=== PATIENT | female | born 1965 | race Caucasian/White ===

== ENCOUNTER 2018-07-28 17:15 | Inpatient (IN) ==
[~2018-07-28 17:15] MED LIST: Iohexol 350 MG/ML 50 ML Vial (for Cath Lab) IVCONTRAST ONE
[2018-07-28] MEDS ORDERED: Butalbital/APAP/Caff 50/325/40 MG Tablet PO ONE (17:56)
--- NOTE | 2018-07-28 18:10 | ED ---
HPI General Chief Complaint: Chest Pain Stated Complaint: chest pain Time Seen by Provider: 07/28/18 17:41 Source: patient Mode of arrival: ambulatory Limitations: no limitations History of Present Illness HPI narrative: 53 YO F with PMH of DM, HTN, CHF, hypothyroid, chronic headaches presents to the ED for evaluation of an episode of chest pain ~10am today. The patient states that the pain started in the bilateral jaw and radiated down the neck and into the chest. Pain was sharp, aching, lasted ~20 minutes before resolving spontaneously. She endorses associated nausea and SOB. She denies palpitations or diaphoresis. The patient chewed 2 Excedrin en route. She states that the pain is resolved on presentation. She complains of headache over the left eye with associated photophobia. Pain is rated 6/10, throbbing, similar to previous headaches. She endorses associated nausea. She states that she had a similar episode of chest pain earlier in the week. She went to [facility] 4 days ago and had an elevated Troponin of 0.07 followed by a reflex troponin of 0.12. She states "they wanted to take me to the dental laboratory supervisor but gave me the option of seeing my own doctor for the procedure." The patient left AMA. She endorses distant history of stress test. She endorses compliance with her daily medications. She is followed by Dr. Grant. Related Data Home Medications Medication Instructions Recorded Confirmed amlodipine 10 mg PO DAILY 04/02/18 07/28/18 empagliflozin [Jardiance] 25 mg PO DAILY 04/02/18 07/28/18 potassium chloride 10 meq PO DAILY 04/02/18 07/28/18 triamterene-hydrochlorothiazid 1 tab PO DAILY 04/02/18 07/28/18 amlodipine 10 mg PO DAILY 07/28/18 07/28/18 insulin glargine [Lantus Solostar 07/28/18 U-100 Insulin] insulin lispro [Humalog KwikPen 07/28/18 07/28/18 Insulin] levothyroxine [Tirosint] 50 mcg PO DAILY 07/28/18 07/28/18 Allergies Allergy/AdvReac Type Severity Reaction Status Date / Time amoxicillin Allergy Severe Nausea Verified 07/28/18 17:23 cephalexin Allergy Severe Migraine Verified 07/28/18 17:23 clindamycin Allergy Severe Nausea Verified 07/28/18 17:23 furosemide [From Lasix] Allergy Edema Verified 07/28/18 17:23 hydromorphone [From Dilaudid] Allergy Hallucinati Verified 07/28/18 17:23 ons Review of Systems ROS: all other systems reviewed are negative [facility] Medical History Medical History CHF (congestive heart failure) (Acute) delivery delivered (Acute) Diabetes (Acute) HTN (hypertension) (Acute) Migraine (Acute) Surgical History Surgical History H/O tubal ligation (Acute) History of cholecystectomy (Acute) Social History Social History Substance History: No History of Abuse Second Hand Smoke Exposure: No Smoking Status: Former smoker How Often Do You Have a Drink Containing Alcohol: Unable to Obtain Recent Travel in [facility] within the Last 8 Weeks: No Recent Out of Country Travel within the Last 8 Weeks: No Immunization History Tetanus Immunization: Unsure Exam Narrative Exam Narrative: GENERAL: Well-nourished, well-developed, obese white female no acute distress. SKIN: Focused skin assessment warm/dry. HEAD: Atraumatic. Normocephalic. EYES: Pupils equal and round. No scleral icterus. No injection or drainage. ENT: No nasal bleeding or discharge. Mucous membranes pink and moist. NECK: Trachea midline. No JVD. CARDIOVASCULAR: Regular rate and rhythm. No murmur appreciated. CHEST: Nontender throughout without deformity or crepitus. No retractions. RESPIRATORY: No accessory muscle use. Clear to auscultation. Breath sounds equal bilaterally. GASTROINTESTINAL: Abdomen soft, non-tender, nondistended. Hepatic and splenic margins not palpable. MUSCULOSKELETAL: No obvious deformities. No clubbing. No cyanosis. No edema. NEUROLOGICAL: Awake and alert. No obvious cranial nerve deficits. Motor grossly within normal limits. Normal speech. PSYCHIATRIC: Appropriate mood and affect; insight and judgment normal. Course Reevaluation(s) Reevaluation #1: Patient began to complain of the same chest pain with palpitations. Physical exam reveals no M/R/G. Repeat EKG without any change from previous EKG of 18:26. Time: 19:15 Initial Documented Vital Signs Temperature 97.4 F L 07/28/18 17:18 Pulse Rate 93 H 07/28/18 17:18 Respiratory Rate 16 07/28/18 17:18 Blood Pressure 185/82 H 07/28/18 17:18 Pulse Oximetry 98 07/28/18 17:18 Last Documented Vital Signs Temperature 97.4 F L 07/28/18 17:18 Pulse Rate 85 07/28/18 19:36 Respiratory Rate 18 07/28/18 19:36 Blood Pressure 156/67 H 07/28/18 19:36 Pulse Oximetry 97 07/28/18 19:36 Medical Decision Making DUARTE Attestation DUARTE supervised visit: Yes Attestation: I, Dr. Sanchez, have reviewed the advance practice practitioner's documentation and am in agreement, met with the patient face to face, made the diagnosis, and the medical decision making was done by me. *My assessment and Findings: Patient seen and examined by me in addition to Marko Sandhu patient appears very comfortable currently. She does have an elevated troponin here as well as 0.95 indicating non-STEMI. Patient was discussed with Ms. Sandhu with Dr. Grant plan is for catheterization tonight. Patient also had headache a CT scan of the head is negative. 4000 units of heparin given the emergency department, [facility] team would like to start a drip up in the [facility]. She is also given metoprolol, Nitropaste. She had no additional questions of me. Will be transferred to the [facility] in stable condition. MDM Narrative Medical decision making narrative: 53-year-old female presents the ED for evaluation of intermittent chest pain. Currently asymptomatic but complaining of a headache. She chewed 2 Excedrin in route. Pulse 93, BP 185/82 on arrival. This improved to 160/67 with a pulse of 80 in the exam room. Physical exam without acute findings. Patient asked for treatment for headache and was administered Fioricet and Zofran. CT of the brain without acute findings. On recheck she reports improvement of her symptoms. Wall in the emergency room she began to complain of the same pain and was administered morphine, recheck of the ED EKG without acute findings. Troponin elevated at 0.95. I spoke with Dr. Grant who would like the patient to have a beta- norma, heparin bolus and drip, Nitropaste and plans to take her to the [facility] tonight. These were ordered and administered. I spoke with the patient regarding the findings and Dr. Grant's plan. She is anxious but agreeable. The patient was taken to [facility]. I spoke with Dr. Leos who agrees to accept this patient to the medicine service. Please see cardiology and medicine notes for disposition. Medical Screen Exam Complete: Yes Emergency Medical Condition: Yes Differential Diagnosis Differential Diagnosis: chest pain versus ACS versus CHF exacerbation versus other Lab Data Result diagrams: 07/28/18 18:03 07/28/18 18:03 Lab Results 07/28/18 07/28/18 07/28/18 Range/Units 18:03 18:03 18:03 WBC 12.7 H (4.0-11.0) th/mm3 RBC 5.31 H (4.00-5.30) mil/mm3 Hgb 14.9 (11.6-15.3) gm/dL Hct 44.8 (35.0-46.0) % MCV 84.3 (80.0-100.0) fL MCH 28.0 (27.0-34.0) pg MCHC 33.2 (32.0-36.0) % RDW 14.9 (11.6-17.2) % Plt Count 342 (150-450) th/mm3 MPV 9.6 (7.0-11.0) fL Neut % (Auto) 57.2 (16.0-70.0) % Lymph % (Auto) 31.8 (9.0-44.0) % Lane % (Auto) 6.3 (0.0-8.0) % Eos % (Auto) 3.5 (0.0-4.0) % Baso % (Auto) 1.2 (0.0-2.0) % Neut # (Auto) 7.3 (1.8-7.7) th/mm3 Lymph # (Auto) 4.0 (1.0-4.8) th/mm3 Lane # (Auto) 0.8 (0.0-0.9) th/mm3 Eos # (Auto) 0.4 (0.0-0.4) th/mm3 Baso # (Auto) 0.2 (0.0-0.2) th/mm3 WBC Differential . Differential Comment Auto diff final PT (9.8-11.6) sec INR Ratio APTT (23.4-31.7) sec Sodium 139 (136-145) meq/L Potassium 3.9 (3.5-5.1) meq/L Chloride 103 (98-107) meq/L Carbon Dioxide 26.2 (21.0-32.0) meq/L Anion Gap 10 (5-15) meq/L BUN 15 (7-18) mg/dL Creatinine 0.92 (0.50-1.00) mg/dL Estimated GFR 64 L (>89) mL/min Random Glucose 215 H (74-106) mg/dL Calcium 8.7 (8.5-10.1) mg/dL Total Bilirubin 0.3 (0.2-1.0) mg/dL AST 30 (15-37) U/L ALT 27 (10-53) U/L Alkaline Phosphatase 124 H (45-117) U/L Troponin I 0.95 H* (0.02-0.05) ng/mL B-Natriuretic Peptide 117 H (0-100) pg/mL Total Protein 7.8 (6.4-8.2) g/dL Albumin 3.5 (3.4-5.0) g/dL 07/28/ Range/Units 20:13 WBC (4.0-11.0) th/mm3 RBC (4.00-5.30) mil/mm3 Hgb (11.6-15.3) gm/dL Hct (35.0-46.0) % MCV (80.0-100.0) fL MCH (27.0-34.0) pg MCHC (32.0-36.0) % RDW (11.6-17.2) % Plt Count (150-450) th/mm3 MPV (7.0-11.0) fL Neut % (Auto) (16.0-70.0) % Lymph % (Auto) (9.0-44.0) % Lane % (Auto) (0.0-8.0) % Eos % (Auto) (0.0-4.0) % Baso % (Auto) (0.0-2.0) % Neut # (Auto) (1.8-7.7) th/mm3 Lymph # (Auto) (1.0-4.8) th/mm3 Lane # (Auto) (0.0-0.9) th/mm3 Eos # (Auto) (0.0-0.4) th/mm3 Baso # (Auto) (0.0-0.2) th/mm3 WBC Differential Differential Comment PT 9.8 (9.8-11.6) sec INR 1.0 Ratio APTT 131.2 H* (23.4-31.7) sec Sodium (136-145) meq/L Potassium (3.5-5.1) meq/L Chloride (98-107) meq/L Carbon Dioxide (21.0-32.0) meq/L Anion Gap (5-15) meq/L BUN (7-18) mg/dL Creatinine (0.50-1.00) mg/dL Estimated GFR (>89) mL/min Random Glucose (74-106) mg/dL Calcium (8.5-10.1) mg/dL Total Bilirubin (0.2-1.0) mg/dL AST (15-37) U/L ALT (10-53) U/L Alkaline Phosphatase (45-117) U/L Troponin I (0.02-0.05) ng/mL B-Natriuretic Peptide (0-100) pg/mL Total Protein (6.4-8.2) g/dL Albumin (3.4-5.0) g/dL Imaging Data Radiologist's impression: Chest X-Ray 07/28/18 17:55 CONCLUSION: The lungs are clear. Head CT 07/28/18 17:56 CONCLUSION: 1. No acute intracranial abnormalities. . ECG Data Attestation: I personally reviewed and interpreted this ECG as follows: Interpretation: Rate 88, sinus rhythm. OK interval 169, QRS 94, Q TC 369 ms. Normal axis. No evidence of STEMI. Reviewed by Dr. Sanchez. Discharge Plan Discharge Disposition Patient Disposition: 30 Still Patient Physicians Team ED Provider: Raymon Sanchez ED Midlevel Provider: Sherita Sandhu Primary Care Provider: Vladimir Abdul Attending Provider: Traci Leos Other Providers: Cam Grant Discharge Interventions Interventions: ED Discharge Assessment Last Done: 07/28/18 20:13 Vital Signs Last Done: 07/28/18 17:18 Status ED Status: Left Department Discharge Information Discharge Date/Time: 07/28/18 20:13
[2018-07-28 18:30] LABS: Baso # (Auto) 0.2 th/mm3 (0.0-0.2); Baso % (Auto) 1.2 % (0.0-2.0); Eos # (Auto) 0.4 th/mm3 (0.0-0.4); Eos % (Auto) 3.5 % (0.0-4.0); Hematocrit 44.8 % (35.0-46.0); Hemoglobin 14.9 gm/dL (11.6-15.3); Lymph % (Auto) 31.8 % (9.0-44.0); Mean Corpuscular HGB Conc 33.2 % (32.0-36.0); Mean Corpuscular Volume 84.3 fL (80.0-100.0); Mean Platelet Volume 9.6 fL (7.0-11.0); Mono # (Auto) 0.8 th/mm3 (0.0-0.9); Mono % (Auto) 6.3 % (0.0-8.0); Neut # (Auto) 7.3 th/mm3 (1.8-7.7); Neut % (Auto) 57.2 % (16.0-70.0); Platelet Count 342 th/mm3 (150-450); Red Blood Count 5.31 mil/mm3 (4.00-5.30); Red Cell Distribution Width 14.9 % (11.6-17.2); White Blood Count 12.7 th/mm3 (4.0-11.0)
--- NOTE | 2018-07-28 18:39 | XR ---
EXAM DATE: 07/28/2018 6:32 PM EST AGE/SEX: 53 years / Female INDICATIONS: Chest pain. CLINICAL DATA: This is the patient's initial encounter. Patient reports that signs and symptoms have been present for 1 day and indicates a pain score of 5/10. MEDICAL/SURGICAL HISTORY: None. None. COMPARISON: [facility], XR CHEST PA AND LAT, 12/14/2016. . FINDINGS: A single AP view of the chest demonstrates the lungs to be symmetrically aerated without evidence of mass, infiltrate or effusion. The cardiomediastinal contours are unremarkable. Osseous structures a re intact. CONCLUSION: The lungs are clear. Electronically signed by: Neto Hankins MD 07/28/2018 6:37 PM EST
[2018-07-28 18:55] LABS: Alanine Aminotransferase 27 U/L (10-53)
--- NOTE | 2018-07-28 19:09 | CT ---
EXAM DATE: 07/28/2018 6:54 PM EST AGE/SEX: 53 years / Female INDICATIONS: Headache. Chest pain and shortness of breath. CLINICAL DATA: This is the patient's initial encounter. Patient reports that signs and symptoms have been present for 1 day and indicates a pain score of 9/10. MEDICAL/SURGICAL HISTORY: Congestive heart failure. Diabetes. Hypertension. Tubal ligation. RADIATION DOSE: 35.46 CTDI (mGy) [place] [facility] [place]/10/2012. . TECHNIQUE: CT of the head without contrast. Using automated exposure control and adjustment of the mA and/or kV according to patient size, radiation dose was kept as low as reasonably achievable to ob tain optimal diagnostic quality images. DICOM format image data is available electronically for revi ew and comparison. FINDINGS: Cerebrum: The ventricles are normal for age. No evidence of midline shift, mass lesion, hemorrhage or acute infarction. No extraaxial fluid collections are seen. Posterior Fossa: The cerebellum and brainstem are intact. The 4th ventricle is midline. The cerebe llopontine angle is unremarkable. Extracranial: The visualized portion of the orbits is intact. Skull: The calvaria is intact. No evidence of skull fracture. CONCLUSION: 1. No acute intracranial abnormalities. . Electronically signed by: Eze Pace MD 07/28/2018 7:08 PM EST
[2018-07-28] MEDS ORDERED: Morphine Inj 4 MG/ML Vial IV.PUSH ONE (19:10)
[2018-07-28 19:39] LABS: Albumin 3.5 g/dL (3.4-5.0); Alkaline Phosphatase 124 U/L (45-117); Anion Gap 10 meq/L (5-15); Aspartate Aminotransferase 30 U/L (15-37); Blood Urea Nitrogen 15 mg/dL (7-18); Calcium 8.7 mg/dL (8.5-10.1); Carbon Dioxide 26.2 meq/L (21.0-32.0); Chloride 103 meq/L (98-107); Glomerular Filtration Rate 64 mL/min (>89); Glucose,Random 215 mg/dL (74-106); Sodium 139 meq/L (136-145); Total Protein 7.8 g/dL (6.4-8.2)
[2018-07-28 19:44] LABS: Potassium 3.9 meq/L (3.5-5.1)
[2018-07-28 19:46] LABS: Troponin I 0.95 ng/mL (0.02-0.05)
[2018-07-28] MEDS ORDERED: Metoprolol Tartrate 25 MG Tablet PO ONE (19:54)
[2018-07-28] MEDS ORDERED: Heparin 10,000 UNITS/10 ML Vial (for IV use) IV.PUSH STA (19:54)
[2018-07-28] MEDS ORDERED: Heparin Drip 25,000 UNIT/250 ML BAG IV.CONT PRN (19:54)
[2018-07-28] MEDS ORDERED: fentaNYL Citrate Inj 100 MCG/2 ML Ampul ONE (20:21)
[2018-07-28 20:41] LABS: Prothrombin Time 9.8 sec (9.8-11.6)
[2018-07-28 20:45] LABS: Activated Partial Thrombo Time 131.2 sec (23.4-31.7)
--- NOTE | 2018-07-28 20:53 | MB ---
cc: Cam Grant MD DATE: 07/28/2018 HISTORY OF PRESENT ILLNESS: Sarai is a very pleasant 53-year-old lady recently seen at [facility], and had elevated troponin, was told to stay and have a heart catheterization. The patient declined. She saw me in the office this week. We discussed the case, she was pain free at that time. Plan was to proceed with a myocardial perfusion study. The patient presented to the ER tonight with severe chest pain, found to have a troponin of 0.95 on initial labs. She is very anxious and apprehensive, in moderate distress. Otherwise, denies any fever, chills, cough, acute bleeding, PND, orthopnea, syncope, or dizziness. PAST MEDICAL HISTORY: As per history of present illness. She has a history of diabetes mellitus, hypertension, CHF, hypothyroidism, chronic headaches, migraines with episodes of hemiparesis. PAST SURGICAL HISTORY: delivery, tubal ligation, cholecystectomy. SOCIAL HISTORY: Former smoker. Denies alcohol use. ALLERGIES: 1. AMOXICILLIN 2. CEPHALEXIN. 3. CLINDAMYCIN. 4. FUROSEMIDE. 5. HYDROMORPHONE. PHYSICAL EXAMINATION: VITAL SIGNS: Temperature 97.4, pulse 93, blood pressure 185/82, respiratory rate 16. GENERAL: She is alert and oriented x 3, in moderate distress. NECK: Supple. No JVD. No bruit. CARDIOVASCULAR: S1, S2. No murmurs, rubs, gallops. LUNGS: Coarse bilaterally. ABDOMEN: Soft, nontender, nondistended, positive bowel sounds. EXTREMITIES: Lower extremity edema. LABORATORY DATA: White count 12.7, hemoglobin 14.9, hematocrit 44.8, platelet count 342. Sodium 139, potassium 3.9, chloride 103, bicarbonate 26.2, BUN 15, creatinine 0.92, glucose 215. BNP 117. Troponin 0.95. Chest x-ray: Lungs are clear. EKG is not available in the computer. She did have a head CT today, no acute intracranial abnormalities. ASSESSMENT: She has the following diagnoses: 1. [id number] myocardial infarction. The patient received aspirin and heparin in the ER. 2. Hypertension. 3. Migraine headaches. 4. Diabetes mellitus. The patient received aspirin and heparin in the ER. DISCUSSION: At this point in time, plan is for urgent left heart catheterization. The patient presents with a very high risk presentation and second admission to the ER with elevated troponin with troponin increasing, and severe chest pain on admission. MD SIDRA Farris/rex , 08:24 PM , 08:30 PM
[2018-07-28] MEDS ORDERED: Heparin 10,000 UNITS/10 ML Vial (for IV use) ONE (21:00)
[2018-07-28] MEDS ORDERED: Tirofiban Inj 12,500 MCG/250 ML PLAST..BAG ONE (21:10)
[2018-07-28] MEDS ORDERED: TIROFIBAN BOLUS IV.SIG ONE (21:25)
[2018-07-28] MEDS ORDERED: Misc Info for Pharmacy OTHER SCH (21:25)
--- NOTE | 2018-07-28 21:31 | CATHPROC ---
[facility] HIS Report Study Information Study Number Admission Scheduled Start Study Start [id number] Jul 28 2018 5:15PM 07/28/2018 Jul 28 2018 8:12PM [place] Service Cardiac Catheterization Admit Source Facility Department Emergency department [facility] Phys[facility] and Clinical Staff Initial Cam Olivier Animal Therapist Nigel Tony,RN Animal Therapist Alexandra Segura,RN Recorder Rusty Pat,RT(R) ScrCalli Sánchez ,RT(R) Procedures Performed Procedure Location (Site) Vessel Name Coronary Angiograms RCA Right Coronary LV Gram-hand inj. LV LV Ventricle Stent CIRC Prox CIRC Wire insertion Fem Art (right) Femoral Art Equipment Time Double End Chucking Machine Operator Description Size Mfg Part Number Used/Scraped [id number] 20:56 [employer] WIRE, ASAPercello PROWATER 180CM 180CM Used *[id number] TRANSDUCER, TRUWAVE [id number] 20:37 CANDELARIO MYLES * Used W/STOCKCOCK *[id number] 21:07 DealerRater WIRE, CHOICE PT 182CM 182CM Used *[id number] 538-420 *[id number] [id number] *[id number] *[id number] *[id number] *[id number] 20:37 [employer] BLANKET,WARM AIR CCL * Used *[id number] 20:37 [employer] PACK, CCL CUSTOM * Used *[id number] 20:37 [employer] PACER PEN, SKIN DUAL W/ RULER * Used *[id number] 20:59 MEDTRONIC STENT, 2.5 12 INTEGRITY 2.5 12 Used *[id number] 21:12 [employer] MEDICAL 30 YARITZA INDEFLATOR Used *[id number] 20:59 Chart[employer] MEDICAL SHEATH, FR6.5 PRELUDE 11CM FR 6.5 038ACT Used *[id number] 20:37 [employer] MEDICAL WIRE, 3MMJ .035 180CM 180CM Used *[id number] 20:37 NAMIC MANIFOLD, 4 PORT * Used *[id number] 20:37 NYCOMED OMNIPAQUE, 350 MG, 150ML 150ML [id number] Used [id number] 20:37 TERUMO MEDICAL SHEATH, FR4 TERUMO (10CM) FR 4 Used *[id number] History: Allergies Allergy Reaction cephalexin Migraine clindamycin Nausea amoxicillin Nausea hydromorphone Hallucinations furosemide Edema History: Risk Factors Family History of Hypertension Previous Heart Failure Premature CAD Yes Yes Yes Diabetes Diabetes Therapy Labs Hgb (g/dl) Hct (%) WBC (l/cumm) Platelets (thousands) 11.60-17.00 35.00-51.00 4.00-11.00 150.00-450.00 14.9 44.8 12.7 342 Glucose (mg/dl) BUN (mg/dl) Creatinine (mg/dl) BUN:Creatinine (1:x) 74.00-106.00 7.00-18.00 0.50-1.30 10.00-20.00 215 15 0.9 16.7 Na (meq/l) K (meq/l) 136.00-145.00 3.50-5.10 139 3.9 Troponin I (ng/ml) CPK-MB (ng/ML) 0.02-0.05 0.50-3.60 0.95 Not Drawn Medication Medication Total Dose (Bolus/Oral) Medication Total Dosage/Unit 1% XYLOCAINE 20 mL AGGRASTAT BOLUS 50 mL FENTANYL 100 mcg HEPARIN 4500 units PLAVIX 600 mg VERSED 3 mg Medications (Bolus/Oral) Medication Time Given Dosage/Unit Administered By Reason VERSED 07/28/2018 8:32:20 PM 1 mg Alexandra Segura 1 mg VERSED given in lab by Alexandra Segura, ANUPAMA in Left Forearm via Peripheral IV. Ordered by Cam Saldivar. FENTANYL 07/28/2018 8:33:26 PM 25 mcg Alexandra Segura 25 mcg FENTANYL given in lab by Alexandra Segura, ANUPAMA via Peripheral IV. Ordered by Cam Grant. VERSED 07/28/2018 8:46:35 PM 1 mg Alexandra Segura 1 mg VERSED given in lab by Alexandra Segura, ANUPAMA via Peripheral IV. Ordered by Cam Grant. 1% XYLOCAINE 07/28/2018 8:47:27 PM 20 mL Cam Grant 20 mL 1% XYLOCAINE given in lab by Cam Grant in Right Groin via Subcutaneous. Ordered by Cam Helm. FENTANYL 07/28/2018 8:47:43 PM 25 mcg Alexandra Segura 25 mcg FENTANYL given in lab by Alexandra Segura RN via Peripheral IV. Ordered by Cam Grant. FENTANYL 07/28/2018 8:51:58 PM 25 mcg Cam Grant 25 mcg FENTANYL given in lab by Cam Grant via Peripheral IV. Ordered by Cam Grant. VERSED 07/28/2018 8:53:23 PM 1 mg Cam Grant 1 mg VERSED given in lab by Cam Grant via Peripheral IV. Ordered by Cam Grant. HEPARIN 07/28/2018 8:58:39 PM 2500 units Alexandra Segura 2500 units HEPARIN given in lab by Alexandra Segura RN via Peripheral IV. Ordered by Cam Grant . HEPARIN 07/28/2018 9:08:16 PM 2000 units Alexandra Segura 2000 units HEPARIN given in lab by Alexandra Segura RN via Peripheral IV. Ordered by Cam Grant . FENTANYL 07/28/2018 9:10:45 PM 25 mcg Nigel Tony 25 mcg FENTANYL given in lab by Nigel Tony RN via Peripheral IV. Ordered by Cam Grant. AGGRASTAT BOLUS 07/28/2018 9:14:17 PM 50 mL Alexandra Segura 50 mL AGGRASTAT BOLUS given in lab by Alexandra Segura RN via Peripheral IV. Ordered by Alexander Grant. PLAVIX 07/28/2018 9:16:10 PM 600 mg Nigel Tony 600 mg PLAVIX given in lab by Nigel Tony RN via Oral. Ordered by Cam Grant. Medication (Drip) Medication Time Given Dosage/Unit Concentration/Unit Diluent (ml) Solution AGGRASTAT DRIP 07/28/2018 9:15:34 PM 0.15 mcg/kg/min 12.5 mg 250 NaCl .9 0.15 mcg/kg/min AGGRASTAT DRIP given in lab by Nigel Tony RN via Peripheral IV. Pump/Drip Flow = 1 8 ml/hr using NaCl .9 with a concentration of 12.5 mg in 250 ml. Ordered by Cam Grant. IV Solutions 07/28/2018 8:34:57 PM 0 mL (IV) 500 NaCl .9 IV Solutions given in lab by Cam Grant in Left Forearm via Peripheral IV. Pump/Drip Flow = 20 ml/hr using NaCl .9. Ordered by Cam Grant. Initial Case Assessment Cardiovascular HR Rhythm NIBP Chest Pain 100 sr 149/85 0 Edema Present Skin color Skin None Normal Warm Dry Circulatory - Right Pulses Dorsalis Pedis Femoral 2 2 Scale (0,1,2,3,4,d) Scale (0,1,2,3,4,d) Neurological State Oriented to time-place- Alert Moves all extremities person Respiration - General Respiration Rate SpO2 (%) O2 (lpm) (B/min) 18 98 0 Chronological Log Time Study Chronological Log 20:19:08 Patient arrived via Bed. 20:19:09 Patient Name, D.O.B, / Armband Verified By R.N. 20:21:56 Consent signed by the physician and the patient and verified by the [facility] staff. 20:32:05 Pre-op and post- op instructions given; patient acknowledges understanding of instructions. 20:32:20 1 mg VERSED given in lab by Alexandra Segura RN in Left Forearm via Peripheral IV. Ordered by Cam Grant. Vitals capture started with the following parameters, Patient=Adult, Interval=5 min, Initial Pr rruher=430 mmHg, 20:33:01 Deflation Rate=5 mmHg, Cuff placed on Left Arm 20:33:26 25 mcg FENTANYL given in lab by Alexandra Segura, ANUPAMA via Peripheral IV. Ordered by Cam Grant. 20:33:26 Verbal Stimulation=2 Physical Stimulation=2 Airway=2 Respiration=2 TOTAL=8. (0=absent, 1=li mited, 2=present) 20:33:40 Presedation assessment performed by [facility] RN. 20:33:42 AR=475 bpm, NNNV=539/85 mmhg, SpO2=98.0 %, Resp=0 B/min, Daugherty=2 20:33:48 Patient has been NPO for More than 6Hrs. 20:33:50 Skin Sxwudocsw-ytz-dbzqblx yeast infection in right groin. 20:34:46 A # 20 IV was noted in the Forearm (left). Grade = 0 IV Solutions given in lab by Cam Grant in Left Forearm via Peripheral IV. Pump/Drip Flow = 20 ml/hr using NaCl 20:34:57 .9. Ordered by Cam Grant. 20:35:25 History and physical on the chart or being dictated. Assessment: Initial Case, BJ=465 BPM, Rhythm=sr, YVEU=379/85 mmhg, Chest Pain=0, Edema=None, Co henrique=Normal, Skin = Warm, Dry 20:35:27 Right Pulses: Billy Ped=2, Femoral=2 Neurological: State=Alert, Ox3, NEGRON Respiration: Resp=18 B/min, SpO2=98 %, O2=0 lpm 20:35:51 Reference ECG taken 20:35:58 Right groin prepped with 2% chlorhexidine, and draped after a 3 min. waiting time. 20:38:41 HR=97 bpm, UVRO=252/81 mmhg, SpO2=98.0 %, Resp=10 B/min, Daugherty=2 20:39:00 Pressure channel 1 zeroed. 20:43:42 HR=96 bpm, FBDO=343/76 mmhg, SpO2=98.0 %, Resp=11 B/min, Daugherty=2 20:46:35 1 mg VERSED given in lab by Alexandra Segura, RN via Peripheral IV. Ordered by Alexander Grant. Time Out. Correct patient, correct procedure, correct physician, labs, allergies, and equipment verified with laborer poultry hatchery 20:47:01 team present. Fire risk assesment completed (see hard stop sheet for coding). Time Out Conc urred by MD and individual staff in procedure. 20:47:07 Presedation re-assessment performed by [facility] RN. 20:47:08 Case Start 20:47:10 Verbal Stimulation=2 Physical Stimulation=2 Airway=2 Respiration=2 TOTAL=8. (0=absent, 1=li mited, 2=present) 20 mL 1% XYLOCAINE given in lab by Cam Grant in Right Groin via Subcutaneous. Ordered by Juanita 20:47:27 Cam. 20:47:43 25 mcg FENTANYL given in lab by Alexandra Segura, RN via Peripheral IV. Ordered by Cam Grant. 20:48:37 HR=96 bpm, WPZL=116/86 mmhg, SpO2=97.0 %, Resp=9 B/min, Daugherty=2 20:51:18 Access site was Right Femoral Artery. 20:51:29 A SHEATH, FR4 TERUMO (10CM) FR 4 was advanced into the Fem Art (right) using the Percutaneo us technique. 20:51:58 25 mcg FENTANYL given in lab by Cam Grant via Peripheral IV. Ordered by Magdi Grant. A JR 4.0 INFINITI CATHETER FR 4 was advanced over a wire. OMNIPAQUE, 350 MG, 150ML 150ML was us ed for 20:52:25 injections. 20:53:23 1 mg VERSED given in lab by Cam Grant via Peripheral IV. Ordered by Cam Grant . 20:53:42 The LV was manually injected with 10 cc's and visualized. OMNIPAQUE, 350 MG, 150ML 150ML us ed. 20:53:44 HR=98 bpm, XMNC=480/68 mmhg, SpO2=97.0 %, Resp=13 B/min, Daugherty=2 Recorded Pressure: LV, HR=97, Condition=Condition 1 20:53:45 (Left Ventricle) LV 142/4/13 Recorded Pressure: LV, Ao, HR=96, Condition=Condition 1 20:53:48 (Left Ventricle) LV 142/8/10, (Aorta) Ao 137/76/104 Recorded Pressure: Ao, HR=95, Condition=Condition 1 20:53:57 (Aorta) Ao 139/66/102 20:54:25 The RCA was injected and visualized at various angles. OMNIPAQUE, 350 MG, 150ML 150ML used . 20:55:15 Catheter was removed A JL 4.0 INFINITI CATHETER FR 4 was advanced over a wire. OMNIPAQUE, 350 MG, 150ML 150ML was us ed for 20:55:16 injections. 20:55:20 ACT (Normal Range 90-180) = 180 20:56:19 Catheter was removed A SHEATH, FR6.5 PRELUDE 11CM FR 6.5 was exchanged in the Fem Art (right). This was necessary in order to 20:58:29 accomodate a larger catheter. 20:58:37 HR=88 bpm, MXXP=186/72 mmhg, SpO2=97.0 %, Resp=10 B/min, Daugherty=2 20:58:39 2500 units HEPARIN given in lab by Alexandra Segura, ANUPAMA via Peripheral IV. Ordered by Cam Yarbrough. A XB 4.0 GUIDE CATHETER FR 6 was advanced over a wire. OMNIPAQUE, 350 MG, 150ML 150ML was used for 20:59:13 injections. After removing the current catheter a XB 3.5 GUIDE CATHETER FR 6 was advanced over a WIRE, 3MMJ .035 180CM 21:01:56 180CM. 21:03:40 HR=87 bpm, UHUJ=979/65 mmhg, SpO2=96.0 %, Resp=10 B/min, Daugherty=2 After removing the current catheter a XB 3.0 GUIDE CATHETER FR 6 was advanced over a WIRE, 3MMJ .035 180CM 21:03:50 180CM. 21:04:56 A WIRE, ASAPercello PROWATER 180CM 180CM was inserted via Fem Art (right). 21:08:16 2000 units HEPARIN given in lab by Alexandra Segura, RN via Peripheral IV. Ordered by Cam Yarbrough. 21:08:25 ACT (Normal Range 90-180) = 194 21:08:37 HR=94 bpm, QVNJ=725/66 mmhg, SpO2=97.0 %, Resp=14 B/min, Daugherty=2 21:09:32 Interventional wire has crossed the lesion 21:10:45 25 mcg FENTANYL given in lab by Nigel Tony, RN via Peripheral IV. Ordered by Renetta Grant rtjulio. An STENT, 2.5 12 INTEGRITY 2.5 12 Bare Metal Stent was inserted through a XB 3.0 GUIDE CATHETE R FR 6 over a 21:11:28 WIRE, CHOICE PT 182CM 182CM. A STENT, 2.5 12 INTEGRITY 2.5 12 was deployed using a 30 YARITZA INDEFLATOR at 9 atmospheres for 1 2 seconds in the 21:11:43 CIRC Prox. 21:12:02 Delivery device removed 21:12:08 Wire removed 21:13:06 Case End (Physician broke scrub) 21:13:38 HR=90 bpm, BPXN=820/76 mmhg, SpO2=97.0 %, Resp=21 B/min, Daugherty=2 21:14:17 50 mL AGGRASTAT BOLUS given in lab by Alexandra Segura, RN via Peripheral IV. Ordered by Cam Sethi. 0.15 mcg/kg/min AGGRASTAT DRIP given in lab by Nigel Tony, RN via Peripheral IV. Pump/Drip F low = 18 ml/hr 21:15:34 using NaCl .9 with a concentration of 12.5 mg in 250 ml. Ordered by Cam Grant. 21:16:10 600 mg PLAVIX given in lab by Nigel Tony, RN via Oral. Ordered by Cam Grant. 21:16:59 ACT (Normal Range 90-180) = 280 21:18:39 HR=89 bpm, ECMJ=384/70 mmhg, SpO2=96.0 %, Resp=13 B/min, Daugherty=2 21:18:59 In the Fem Art (right) the SHEATH, FR6.5 PRELUDE 11CM FR 6.[address] by Cam Helm. 21:19:12 Sterile dressing applied to site 21:19:14 No case complications noted. 21:19:16 Cine recording checked. 21:19:19 Bedside Report will be given. 21:19:31 Implantable Device card placed in patient's chart. 21:23:33 Vitals capture stopped. End Study - Contrast Media Used In Study Contrast Total Opened (mL) Total Used (mL) Total Wasted (mL) Omnipaque 50 50 0 End Study - Maximum Contrast Load Max Contrast Load (mL) 554.5 End Study - Radiation Exposure Fluoro Time (minutes) 5.8 End Study - Patient Disposition Complications Transferred To No Telemetry Bed
[2018-07-28] MEDS ORDERED: Tirofiban Inj 12,500 MCG/250 ML PLAST..BAG IV.CONT SCH (22:00)
[2018-07-28] MEDS ORDERED: Acetaminophen 325 MG Tablet PO PRN (22:14)
[2018-07-28] MEDS ORDERED: Sod Chloride 0.9% Inj 1,000 ML IV.CONT SCH (23:00)
--- NOTE | 2018-07-28 23:02 | MR ---
cc: Cam Grant MD DATE: 07/28/2018 PROCEDURES PERFORMED: Left heart catheterization, left ventriculography, coronary angiography, direct percutaneous coronary intervention with bare-metal stent of the proximal left circumflex vessel. INDICATIONS: Non-STEMI, coronary artery disease, diabetes mellitus, multiple cardiac risk factors. DESCRIPTION OF PROCEDURE: The patient was brought to the cardiac catheterization laboratory, prepped and draped in the usual sterile fashion. Lidocaine 1%, 10 mL, was used to locally anesthetize the right common femoral artery. A 4-Andorran sheath was placed in the right common femoral artery, and 4-Andorran JR4 and JL4 catheters were used to perform left and right coronary angiography and left ventriculography. FINDINGS: LV pressure is 140/10-11, EF 60%. The right coronary artery is dominant. She has a slight hussein's crook in the proximal segment. Mid vessel has a 30% stenosis. Distal vessel has a 10% stenosis. The proximal segment has a 50%-60% stenosis. Right PDA and right ALIA have no significant disease angiographically. Left main coronary has no significant disease angiographically. There is a medium to large-size ramus intermedius vessel with diameter to 3.0 mm. Proximal segment has 50%-60% stenosis at two sequential 90-degree bends. Left circumflex vessel has a proximal 95% stenosis. LAD has mild diffuse disease in the proximal segment, up to 10%-20% angiographically. First diagonal artery is a mild small vessel, 0.5 mm. No significant disease angiographically. Second diagonal artery is a 2.0 mm vessel with a mid 50% stenosis. LAD is transapical. A 4-Andorran sheath was exchanged for 6-Andorran sheath. Initial ACT was 178. Additional 2500 units of heparin was given. Second ACT was 190. Additional 2000 units of heparin was given. Final ACT 280. A 6-Andorran XP 3.0 guide and a 0.14 Prowater wire were not able to cross the lesion as there was a 100-degree bend off the left main and the wire continuously prolapsed. I was able to deliver 0.014 ChoICE PT floppy wire with some degree of difficulty across the lesion, place into the distal left third. I was able to directly stent the lesion with a 2-5-12 Integrity stent, one inflation at 15 atmospheres for 20 seconds. Stenosis went from 95% to 0% with LUCIANO 3 flow. CONCLUSIONS: 1. Non-STEMI. 2. Culprit 95% proximal left circumflex vessel stenosis. 3. There is a 50%-60% disease in the proximal ramus intermedius vessel, proximal RCA, and mid left third distal to the stent. 4. Successful direct PCI with bare-metal stent in the proximal circumflex from 95% to 0% with LUCIANO 3 flow. 5. Recommend Plavix 600 mg p.o. load and 75 mg a day for 12-15 months, aspirin 162 mg daily. Aggrastat drip per protocol. Treat lipids, NCEP guidelines, and also treat the patient with beta norma and NAVIN inhibitors as hemodynamically and clinically tolerated. Cam Grant MD AWC/rm/do , 09:21 PM , 09:31 PM
[2018-07-28] MEDS ORDERED: Dextrose 50% in Water 50 ML Vial IV.PUSH PRN (23:13)
[2018-07-28] MEDS ORDERED: Melatonin 5 MG Tablet PO PRN (23:17)
--- NOTE | 2018-07-28 23:37 | P.HPIM ---
History of Present Illness Service: [facility] Primary Care Physician: Vladimir Abdul DO Chief Complaint: Chest pain History of Present Illness: Mrs. Greene is a 53 y/o female with a history of diabetes mellitus, hypertension, hypothyroidism, congestive heart failure, and migraine headaches with episodes of hemiparesis who presented to the emergency room on 07/28/2018 complaining of chest pain after she had signed out AMA from [facility] 4 days prior with similar complaints and elevated troponin to follow-up with her regular desulphurizer operator. The patient was found to have elevated troponin of 0.95 and was taken emergently to the cardiac catheterization lab by Dr. Grant. She is being admitted under the hospitalist service for medical management. Patient is seen in the CDU with her at the bedside. Patient reports symptoms started last weekend with an episode of chest pain. She was seen at [facility] as described above. This morning, she began to experience severe crushing chest pain and was advised by her desulphurizer operator to come to the emergency room. Symptoms were accompanied by shortness of breath and nausea. She also reports a history of hemiplegic migraines. She is sensitive to multiple medications and requires Zofran prior to morphine and is unable to tolerate many other medications. Inpatient Certification: I certify that the inpatient services were ordered in accordance with Medicare regulations governing the order. This includes certification that hospital inpatient services are reasonable and necessary and in the case of services not specified as inpatient-only under 42 CFR 419.22(n), that they are appropriately provided as inpatient services in accordance to with the 2-midnight benchmark under 43 CFR 412.3(e) Estimated Total Length of Stay (Days): 3 Plans for Post Hospital Care: Home Review of Systems All other systems reviewed negative except as stated in HPI [facility] - History History Provided By: Patient - Medical History Medical History: Medical History (Last Updated 07/29/18 @ 02:14 by KIP Story) Sánchez's palsy Hypothyroidism CHF (congestive heart failure) Diabetes HTN (hypertension) Migraine - Surgical History Surgical History: Surgical History (Last Updated 07/28/18 @ 23:44 by KIP Story) History of section H/O tubal ligation History of cholecystectomy - Family History Family History: Family History (Last Updated 07/29/18 @ 02:09 by Lucinda Wells, [employer]) Mother No problems noted. Father Family history of coronary artery disease Uncle Family history of coronary artery disease Grandparent Family history of coronary artery disease - Social History I have reviewed the patient's Social History: Yes - Tobacco History Second Hand Smoke Exposure: No Smoking Status: Former smoker - Alcohol History How Often Do You Have a Drink Containing Alcohol: Unable to Obtain - Substance Use History Substance History: No History of Abuse - Travel History Recent Travel in the [place] Within the Last 8 Weeks: No Recent Travel Out of the Country Within the Last 8 Weeks: No - Immunization History Tetanus Immunization: Unsure Medications and Allergies Active Medications: Active Medications Acetaminophen (Tylenol) 650 mg PO Q4H PRN PRN Reason: Temp > 100.4/pain 1-3/MEEHAN Amlodipine Besylate (Norvasc) 10 mg PO DAILY [facility] Aspirin (Aspirin Chew) 162 mg PO DAILY [facility] Atorvastatin Calcium (Lipitor) 10 mg PO HS [facility] Carvedilol (Coreg) 3.125 mg PO BID [facility] Clopidogrel Bisulfate (Plavix) 75 mg PO DAILY [facility] Dextrose (D50w Vial) 50 ml IV.PUSH UNSCH PRN PRN Reason: PER HYPOGLYCEMIA PROTOCOL Glucagon (Glucagon Inj) 1 mg OTHER PRN PRN PRN Reason: for Hypoglycemia Protocol Tirofiban/Sodium Chloride (Aggrastat Inj) 12,500 mcg in 250 mls @ 8.981 mls/hr IV.CONT .Q24H [facility]; Protocol Sodium Chloride (Ns Inj) 1,000 mls @ 100 mls/hr IV.CONT .Q10H [facility] Insulin Aspart (Novolog Insulin Correctional Sugar Inj) 0 unit SQ ACHS [facility]; Protocol Levothyroxine Sodium (Synthroid) 50 mcg PO DAILY@0600 [facility] Melatonin (Melatonin) 5 mg PO HS PRN PRN Reason: INSOMNIA Miscellaneous Information ([facility] [place]Read Comments) 0 each OTHER STAT [facility] Stop: 07/29/18 07:30 Ondansetron HCl (Zofran Inj) 4 mg IV.PUSH Q6H PRN PRN Reason: NAUSEA OR VOMITING Last Admin: 07/28/18 22:49 Dose: 4 mg Potassium Chloride (Klor-Con 10) 10 meq PO DAILY [facility] Ramipril (Altace) 2.5 mg PO DAILY [facility] Sodium Chloride (Ns Flush) 2 ml IV.FLUSH BID [facility] Sodium Chloride (Ns Flush) 2 ml IV.FLUSH PRN PRN PRN Reason: FLUSH AFTER USING IV ACCESS Tramadol HCl (Ultram) 50 mg PO Q6H PRN PRN Reason: pain 4 - 10 Triamterene/HCTZ (Maxzide 37.5 Mg-25 Mg) 1 tab PO DAILY [facility] Allergies Allergy/AdvReac Type Severity Reaction Status Date / Time amoxicillin Allergy Severe Nausea Verified 07/28/18 17:23 cephalexin Allergy Severe Migraine Verified 07/28/18 17:23 clindamycin Allergy Severe Nausea Verified 07/28/18 17:23 furosemide [From Lasix] Allergy Edema Verified 07/28/18 17:23 hydromorphone [From Dilaudid] Allergy Hallucinati Verified 07/28/18 17:23 ons Home Medications Medication Instructions Recorded Confirmed Type amlodipine 10 mg PO DAILY 04/02/18 07/28/18 History empagliflozin [Jardiance] 25 mg PO DAILY 04/02/18 07/28/18 History potassium chloride 10 meq PO DAILY 04/02/18 07/28/18 History triamterene-hydrochlorothiazid 1 tab PO DAILY 04/02/18 07/28/18 History amlodipine 10 mg PO DAILY 07/28/18 07/28/18 History insulin glargine [Lantus Solostar 07/28/18 History U-100 Insulin] insulin lispro [Humalog KwikPen 07/28/18 07/28/18 History Insulin] levothyroxine [Tirosint] 50 mcg PO DAILY 07/28/18 07/28/18 History Exam Vital signs: Vital Signs 07/28/18 17:18 07/28/18 19:32 07/28/18 19:36 Temperature 97.4 F L Pulse Rate 93 H 80 85 Respiratory Rate 16 18 Blood Pressure 185/82 H 160/67 H 156/67 H Pulse Oximetry 98 99 97 Intake & Output 07/28/18 07/28/18 07/29/18 06:59 18:59 06:59 Weight 99.79 kg Narrative: GENERAL: This is a well-nourished, well-developed patient, in no apparent distress. SKIN: No rashes, ecchymoses or lesions. Cool and dry. HEAD: Atraumatic. Normocephalic. EYES: No scleral icterus. No injection or drainage. ENT: Nose without bleeding, purulent drainage. NECK: Trachea midline. No JVD or lymphadenopathy. CARDIOVASCULAR: Regular rate and rhythm without murmurs, gallops, or rubs. +2 bilateral dorsalis pedal pulses, right groin soft and covered with clean & dry dressing. RESPIRATORY: Clear to auscultation. Breath sounds equal bilaterally. No wheezes , rales, or rhonchi. GASTROINTESTINAL: Abdomen soft, non-tender, nondistended. No guarding. MUSCULOSKELETAL: Extremities without clubbing, cyanosis. No calf tenderness. NEUROLOGICAL: Awake and alert. Right side of mouth with diminished movement/ slight droop (secondary to Sánchez's palsy) normal speech. . Results - Labs CBC & Chem 7: 07/28/18 18:03 07/28/18 18:03 Labs: Short CBC 07/28/18 Range/Units 18:03 WBC 12.7 H (4.0-11.0) th/mm3 Hgb 14.9 (11.6-15.3) gm/dL Hct 44.8 (35.0-46.0) % Plt Count 342 (150-450) th/mm3 BMP 07/28/18 18:03 Sodium 139 Potassium 3.9 Chloride 103 Carbon Dioxide 26.2 BUN 15 Creatinine 0.92 Calcium 8.7 Cardiac Enzymes 07/28/18 Range/Units 18:03 Troponin I 0.95 H* (0.02-0.05) ng/mL Liver Function 07/28/18 Range/Units 18:03 Total Bilirubin 0.3 (0.2-1.0) mg/dL AST 30 (15-37) U/L ALT 27 (10-53) U/L Alkaline Phosphatase 124 H (45-117) U/L Albumin 3.5 (3.4-5.0) g/dL - Imaging Impressions Chest X-Ray 07/28/18 17:55 CONCLUSION: The lungs are clear. Head CT 07/28/18 17:56 CONCLUSION: 1. No acute intracranial abnormalities. . Caprini VTE Risk Assessment Caprini VTE Risk Assessment: Moderate/High Risk (score >= 2) Caprini Risk Assessment Model: Point Value = 1 Point Value = 2 Point Value = 3 Point Value = 5 Age 41-60 Minor surgery BMI > 25 kg/m2 Swollen legs Varicose veins or History of unexplained or recurrent spontaneous Oral contraceptives or hormone replacement Sepsis (< 1 month) Serious lung disease, including pneumonia (< 1 month) Abnormal pulmonary function Acute myocardial infarction Congestive heart failure (< 1 month) History of inflammatory bowel disease Medical patient at bed rest Age 61-74 Arthroscopic surgery Major open surgery (> 45 min) Laparoscopic surgery (> 45 min) Malignancy Confined to bed (> 72 hours) Immobilizing plaster cast Central venous access Age >= 75 History of VTE Family history of VTE Factor V Leiden Prothrombin [id number] Lupus anticoagulant Anticardiolipin antibodies Elevated serum homocysteine Heparin-induced thrombocytopenia Other congenital or acquired thrombophilia Stroke (< 1 month) Elective arthroplasty Hip, pelvis, or leg fracture Acute spinal cord injury (< 1 month) Prophylaxis Regimen: Total Risk Factor Score Risk Level Prophylaxis Regimen 0-1 Low Early ambulation 2 Moderate Order ONE of the following: *Sequential Compression Device (SCD) *Heparin 5000 units SQ BID 3-4 Higher Order ONE of the following medications: *Heparin 5000 units SQ TID *Enoxaparin/Lovenox 40 mg SQ daily (WT < 150 kg, CrCl > 30 mL/min) *Enoxaparin/Lovenox 30 mg SQ daily (WT < 150 kg, CrCl > 10-29 mL/min) *Enoxaparin/Lovenox 30 mg SQ BID (WT < 150 kg, CrCl > 30 mL/min) AND/OR *Sequential Compression Device (SCD) 5 or more Highest Order ONE of the following medications: *Heparin 5000 units SQ TID (Preferred with Epidurals) *Enoxaparin/Lovenox 40 mg SQ daily (WT < 150 kg, CrCl > 30 mL/min) *Enoxaparin/Lovenox 30 mg SQ daily (WT < 150 kg, CrCl > 10-29 mL/min) *Enoxaparin/Lovenox 30 mg SQ BID (WT < 150 kg, CrCl > 30 mL/min) AND *Sequential Compression Device (SCD) Assessment and Plan - Plan Mrs. Greene is a 53 y/o female with a history of diabetes mellitus, hypertension, hypothyroidism, congestive heart failure, and migraine headaches with episodes of hemiparesis who presented to the emergency room on 07/28/2018 complaining of chest pain after she had signed out AMA from [facility] 4 days prior with similar complaints and elevated troponin to follow-up with her regular desulphurizer operator. The patient was found to have elevated troponin of 0.95 and was taken emergently to the cardiac catheterization lab by Dr. Grant. She is being admitted under the hospitalist service for medical management. NSTEMI -consult to cardiology - assistance appreciated -s/p cardiac catheterization with PCI with bare-metal stent in the proximal circumflex to treat 95% blockage -Per Dr. Grant's notes, patient to be loaded with Plavix 600 mg p.o., followed by 75 mg a day for 12-15 months, aspirin 162 mg daily, and Aggrastat drip per protocol, lipid treatment: Atorvastatin 10 qhs, beta-norma: carvedilol 3.125 mg BID, and ACEI: altace 2.5 daily Type 2 Diabetes Mellitus -Hold home Lantus as dose is unknown and Jardiance for now -Accu-Cheks before meals and at bedtime with low-dose NovoLog sliding scale coverage -PRN Hypoglycemia protocol -Monitor trends and blood glucose readings and adjust treatments as indicated -Will need to f/u with Dr. Abdul, PCP as an outpatient Hypertension -Continue Maxide 37.5/20 5 mg and amlodipine -Carvedilol and Altace started as per above -Follow trends in blood blood pressure and adjust treatments as indicated Hypothyroidism -Resume home levothyroxine Hemiplegic migraines suspected -discussed likelihood that this will trigger a stroke alert - patient and aware - hemiplegic symptoms start before MEEHAN DVT prophylaxis -anticoagulated with heparin drip prior to cath - would hold off on chemoprophylaxis until okay with cardiology Discussed Condition With: Dr. Leos
[2018-07-29] MEDS ORDERED: Morphine Sulfate Inj 2 MG/ML Vial IV.PUSH PRN (02:12)
[2018-07-29 03:13] LABS: Baso # (Auto) 0.1 th/mm3 (0.0-0.2); Baso % (Auto) 0.9 % (0.0-2.0); Eos # (Auto) 0.1 th/mm3 (0.0-0.4); Eos % (Auto) 0.9 % (0.0-4.0); Hematocrit 40.7 % (35.0-46.0); Hemoglobin 13.5 gm/dL (11.6-15.3); Lymph # (Auto) 1.6 th/mm3 (1.0-4.8); Lymph % (Auto) 12.6 % (9.0-44.0); Mean Corpuscular HGB Conc 33.3 % (32.0-36.0); Mean Corpuscular Hemoglobin 28.1 pg (27.0-34.0); Mean Corpuscular Volume 84.4 fL (80.0-100.0); Mono # (Auto) 0.6 th/mm3 (0.0-0.9); Mono % (Auto) 4.4 % (0.0-8.0); Neut # (Auto) 10.6 th/mm3 (1.8-7.7); Neut % (Auto) 81.2 % (16.0-70.0); Platelet Count 351 th/mm3 (150-450); Red Blood Count 4.82 mil/mm3 (4.00-5.30); Red Cell Distribution Width 14.7 % (11.6-17.2)
[2018-07-29 03:37] LABS: Calcium 8.2 mg/dL (8.5-10.1); Potassium 3.3 meq/L (3.5-5.1)
[2018-07-29 03:39] LABS: Chol/HDL Ratio 4.79 Ratio; HDL Cholesterol 44.2 mg/dL (40.0-60.0)
[2018-07-29 03:58] LABS: Creatine Kinase MB 46.6 ng/mL (0.5-3.6)
[2018-07-29 04:04] LABS: CKMB Percent 10.3 % (0.0-4.0)
[2018-07-29] MEDS ORDERED: Levothyroxine 50 MCG Tablet PO SCH (06:00)
[2018-07-29 07:41] VITALS: RESP 16
[2018-07-29] MEDS: Insulin NovoLOG Aspart Correctional Sugar Inj SQ SCH ×2 (08:03→12:58)
[2018-07-29] MEDS ORDERED: Triamterene/HCTZ 37.5 MG/25 MG Tablet PO SCH (09:00)
[2018-07-29] MEDS ORDERED: Ramipril 2.5 MG Capsule PO SCH (09:00)
[2018-07-29] MEDS ORDERED: amLODIPine 10 MG Tablet PO SCH (09:00)
--- NOTE | 2018-07-29 09:59 | P.PNCA ---
Subjective Interval history: alert in nad Medications and Allergies Active Medications: Active Medications Acetaminophen (Tylenol) 650 mg PO Q4H PRN PRN Reason: Temp > 100.4/pain 1-3/MEEHAN Last Admin: 07/29/18 00:42 Dose: 650 mg Amlodipine Besylate (Norvasc) 10 mg PO DAILY [facility] Last Admin: 07/29/18 09:10 Dose: 10 mg Aspirin (Aspirin Chew) 162 mg PO DAILY [facility] Last Admin: 07/29/18 09:11 Dose: 162 mg Atorvastatin Calcium (Lipitor) 10 mg PO HS [facility] Carvedilol (Coreg) 3.125 mg PO BID [facility] Last Admin: 07/29/18 09:10 Dose: 3.125 mg Clopidogrel Bisulfate (Plavix) 75 mg PO DAILY [facility] Last Admin: 07/29/18 09:09 Dose: 75 mg Dextrose (D50w Vial) 50 ml IV.PUSH UNSCH PRN PRN Reason: PER HYPOGLYCEMIA PROTOCOL Glucagon (Glucagon Inj) 1 mg OTHER PRN PRN PRN Reason: for Hypoglycemia Protocol Tirofiban/Sodium Chloride (Aggrastat Inj) 12,500 mcg in 250 mls @ 8.981 mls/hr IV.CONT .Q24H [facility]; Protocol Last Admin: 07/29/18 08:12 Dose: 0.075 mcg/kg/min, 8.98 mls/hr Sodium Chloride (Ns Inj) 1,000 mls @ 100 mls/hr IV.CONT .Q10H [facility] Insulin Aspart (Novolog Insulin Correctional Sugar Inj) 0 unit SQ ACHS [facility]; Protocol Last Admin: 07/29/18 08:03 Dose: Not Given Levothyroxine Sodium (Synthroid) 50 mcg PO DAILY@0600 [facility] Last Admin: 07/29/18 05:48 Dose: 50 mcg Melatonin (Melatonin) 5 mg PO HS PRN PRN Reason: INSOMNIA Morphine Sulfate (Morphine Inj) 2 mg IV.PUSH Q3H PRN PRN Reason: pain > 4 Last Admin: 07/29/18 04:50 Dose: 2 mg Ondansetron HCl (Zofran Inj) 4 mg IV.PUSH Q6H PRN PRN Reason: NAUSEA OR VOMITING Last Admin: 07/29/18 04:50 Dose: 4 mg Potassium Chloride (Klor-Con 10) 10 meq PO DAILY [facility] Last Admin: 11/16/18 09:11 Dose: 10 meq Ramipril (Altace) 2.5 mg PO DAILY [facility] Last Admin: 07/29/18 09:10 Dose: 2.5 mg Sodium Chloride (Ns Flush) 2 ml IV.FLUSH BID [facility] Last Admin: 07/29/18 09:11 Dose: Not Given Sodium Chloride (Ns Flush) 2 ml IV.FLUSH PRN PRN PRN Reason: FLUSH AFTER USING IV ACCESS Triamterene/HCTZ (Maxzide 37.5 Mg-25 Mg) 1 tab PO DAILY [facility] Last Admin: 07/29/18 09:08 Dose: 1 tab Allergies Allergy/AdvReac Type Severity Reaction Status Date / Time amoxicillin Allergy Severe Nausea Verified 07/28/18 17:23 cephalexin Allergy Severe Migraine Verified 07/28/18 17:23 clindamycin Allergy Severe Nausea Verified 07/28/18 17:23 furosemide [From Lasix] Allergy Edema Verified 07/28/18 17:23 hydromorphone [From Dilaudid] Allergy Hallucinati Verified 07/28/18 17:23 ons Home Medications Medication Instructions Recorded Confirmed Type amlodipine 10 mg PO DAILY 04/02/18 07/28/18 History empagliflozin [Jardiance] 25 mg PO DAILY 04/02/18 07/28/18 History potassium chloride 10 meq PO DAILY 04/02/18 07/28/18 History triamterene-hydrochlorothiazid 1 tab PO DAILY 04/02/18 07/28/18 History amlodipine 10 mg PO DAILY 07/28/18 07/28/18 History insulin glargine [Lantus Solostar 07/28/18 History U-100 Insulin] insulin lispro [Humalog KwikPen 07/28/18 07/28/18 History Insulin] levothyroxine [Tirosint] 50 mcg PO DAILY 07/28/18 07/28/18 History Physical Exam Vital signs: Vital Signs 07/28/18 17:18 07/28/18 19:32 07/28/18 19:36 Temperature 97.4 F L Pulse Rate 93 H 80 85 Respiratory Rate 16 18 18 Blood Pressure 185/82 H 160/67 H 156/67 H Pulse Oximetry 98 99 97 07/29/18 00:00 07/29/18 04:00 07/29/18 07:40 Temperature 98.4 F 98.0 F 98.8 F Pulse Rate 85 83 73 Respiratory Rate 14 12 16 Blood Pressure 154/70 H 137/62 145/84 H Pulse Oximetry 96 93 L 96 Intake & Output 07/28/18 07/29/18 07/29/18 18:59 06:59 18:59 Intake Total 600 / 600 250 / 250 Output Total 700 / 700 Balance -100 / -100 250 / 250 Weight 99.79 kg 100 kg Intake: IV 250 / 250 Aggrastat Inj 12,500 mcg In 250 250 / 250 ml @ 0 mls/hr .ROUTE .[facility] Rx#:[id number] Oral 600 / 600 Output: Urine 700 / 700 Other: Date of Last Bowel Movement 07/28/18 - Constitutional no acute distress - Routine HEENT Exam Head: Present: normocephalic - Routine Neck Exam Present: supple - Routine Respiratory Exam Present: CTA bilaterally - Routine Cardiovascular Exam Present: S1, S2 - Routine Abdominal Exam Present: soft - Routine Extremities Exam Comments: no hayley Results 07/29/18 02:47 07/29/18 02:47 Cardiac Enzymes 07/28/18 07/28/18 07/29/18 Range/Units 18:03 18:03 02:47 AST 30 (15-37) U/L CK-MB (CK-2) 46.6 H (0.5-3.6) ng/mL Troponin I 0.95 H* (0.02-0.05) ng/mL B-Natriuretic Peptide 117 H (0-100) pg/mL Coagulation 07/28/18 07/28/18 07/29/18 Range/Units 18:03 20:13 02:47 PT 9.8 (9.8-11.6) sec APTT 131.2 H* 25.4 D (23.4-31.7) sec B-Natriuretic Peptide 117 H (0-100) pg/mL Lipids 07/29/18 Range/Units 02:47 Triglycerides 187 H (42-150) mg/dL Cholesterol 212 H (120-200) mg/dL HDL Cholesterol 44.2 (40.0-60.0) mg/dL Cholesterol/HDL Ratio 4.79 Ratio CBC 07/28/18 07/29/18 Range/Units 18:03 02:47 WBC 12.7 H 13.0 H (4.0-11.0) th/mm3 RBC 5.31 H 4.82 (4.00-5.30) mil/mm3 Hgb 14.9 13.5 (11.6-15.3) gm/dL Hct 44.8 40.7 (35.0-46.0) % Plt Count 342 351 (150-450) th/mm3 Neut # (Auto) 7.3 10.6 H (1.8-7.7) th/mm3 Lymph # (Auto) 4.0 1.6 (1.0-4.8) th/mm3 [place] # (Auto) 0.8 0.6 (0.0-0.9) th/mm3 Eos # (Auto) 0.4 0.1 (0.0-0.4) th/mm3 Baso # (Auto) 0.2 0.1 (0.0-0.2) th/mm3 Comprehensive Metabolic Panel 07/28/18 07/29/18 Range/Units 18:03 02:47 Sodium 139 139 (136-145) meq/L Potassium 3.9 3.3 L (3.5-5.1) meq/L Chloride 103 106 (98-107) meq/L Carbon Dioxide 26.2 26.0 (21.0-32.0) meq/L BUN 15 16 (7-18) mg/dL Creatinine 0.92 0.78 (0.50-1.00) mg/dL Calcium 8.7 8.2 L (8.5-10.1) mg/dL AST 30 (15-37) U/L ALT 27 (10-53) U/L Alkaline Phosphatase 124 H (45-117) U/L Total Protein 7.8 (6.4-8.2) g/dL Albumin 3.5 (3.4-5.0) g/dL Intake and Output 07/28/18 07/29/18 07/29/18 22:59 06:59 14:59 Intake Total 600 / 600 250 / 250 Output Total 700 / 700 Balance -100 / -100 250 / 250 Intake: IV 250 / 250 Aggrastat Inj 12,500 mcg In 250 250 / 250 ml @ 0 mls/hr .ROUTE .[facility] Rx#:[id number] Oral 600 / 600 Output: Urine 700 / 700 Other: Date of Last Bowel Movement 07/28/18 Weight 99.79 kg 100 kg - Imaging and Cardiology Imaging: Impressions Chest X-Ray 07/28/18 17:55 CONCLUSION: The lungs are clear. Head CT 07/28/18 17:56 CONCLUSION: 1. No acute intracranial abnormalities. . Assessment and Plan - Assessment (1) NSTEMI (non-ST elevated myocardial infarction) Code(s): I21.4 - Non-ST elevation (NSTEMI) myocardial infarction Status: Acute (2) CAD (coronary artery disease) Code(s): I25.10 - Atherosclerotic heart disease of [place] coronary artery without angina pectoris Status: Acute (3) Diabetes Code(s): E11.9 - Type 2 diabetes mellitus without complications Status: Acute - Plan 1.) CAD - pod # 1 pci bms proximal lcx, ok to dc on aspirin, plavix, lipitor, altace, coreg; patient advised to f/u with me on 08/01/18 and be compliant with aspirin and plavix or risk life threatening stent thrombosis; she understands
[2018-07-29] MEDS ORDERED: Potassium Chloride 25 MEQ Effervescent Tablet PO ONE (10:34)
--- NOTE | 2018-07-29 11:09 | P.PNIM ---
Subjective Interval history: The patient was resting in bed. She denied any shortness of breath. She says she felt a little 2 out of 10 discomfort in her chest. She was nauseous earlier in the morning but is feeling well now. Her family was at the bedside and their questions were answered. Discussed with nursing. Physical Exam Vital signs: Vital Signs 07/28/18 17:18 07/28/18 19:32 07/28/18 19:36 Temperature 97.4 F L Pulse Rate 93 H 80 85 Respiratory Rate 18 Blood Pressure 185/82 H 160/67 H 156/67 H Pulse Oximetry 98 99 97 07/29/18 00:00 07/29/18 04:00 07/29/18 07:00 Temperature 98.4 F 98.0 F Pulse Rate 85 83 79 Respiratory Rate 14 12 Blood Pressure 154/70 H 137/62 Pulse Oximetry 96 93 L 07/29/18 07:40 07/29/18 08:00 07/29/18 09:00 Temperature 98.8 F Pulse Rate 73 70 80 Respiratory Rate 16 Blood Pressure 145/84 H Pulse Oximetry 96 96 07/29/18 10:00 Temperature Pulse Rate 74 Respiratory Rate Blood Pressure Pulse Oximetry Intake & Output 07/28/18 07/29/18 07/29/18 18:59 06:59 18:59 Intake Total 600 / 600 250 / 250 Output Total 700 / 700 Balance -100 / -100 250 / 250 Weight 99.79 kg 100 kg Intake: IV 250 / 250 Aggrastat Inj 12,500 mcg In 250 250 / 250 ml @ 0 mls/hr .ROUTE .[facility] Rx#:[id number] Oral 600 / 600 Output: Urine 700 / 700 Other: Date of Last Bowel Movement 07/28/18 Narrative: GENERAL: This is a well-nourished, well-developed patient, in no apparent distress. SKIN: No rashes, ecchymoses or lesions. Cool and dry. HEAD: Atraumatic. Normocephalic. EYES: No scleral icterus. No injection or drainage. ENT: Nose without bleeding, purulent drainage. NECK: Trachea midline. No JVD or lymphadenopathy. CARDIOVASCULAR: Regular rate and rhythm without murmurs, gallops, or rubs. RESPIRATORY: Clear to auscultation. Breath sounds equal bilaterally. No wheezes , rales, or rhonchi. GASTROINTESTINAL: Abdomen soft, non-tender, nondistended. No guarding. MUSCULOSKELETAL: Extremities without clubbing, cyanosis. NEUROLOGICAL: Awake and alert. Moving upper and lower extremities. . Results - Labs CBC & Chem 7: 07/29/18 02:47 07/29/18 02:47 Laboratory Results - last 24 hr 07/28/18 07/28/18 07/28/18 18:03 18:03 18:03 WBC 12.7 H RBC 5.31 H Hgb 14.9 Hct 44.8 MCV 84.3 MCH 28.0 MCHC 33.2 RDW 14.9 Plt Count 342 MPV 9.6 Neut % (Auto) 57.2 Lymph % (Auto) 31.8 [place] % (Auto) 6.3 Eos % (Auto) 3.5 Baso % (Auto) 1.2 Neut # (Auto) 7.3 Lymph # (Auto) 4.0 [place] # (Auto) 0.8 Eos # (Auto) 0.4 Baso # (Auto) 0.2 WBC Differential . Differential Comment Auto diff final PT INR APTT Sodium 139 Potassium 3.9 Chloride 103 Carbon Dioxide 26.2 Anion Gap 10 BUN 15 Creatinine 0.92 Estimated GFR 64 L POC Glucose Random Glucose 215 H Calcium 8.7 Total Bilirubin 0.3 AST 30 ALT 27 Alkaline Phosphatase 124 H Total Creatine Kinase CK-MB (CK-2) CK-MB (CK-2) % Troponin I 0.95 H* B-Natriuretic Peptide 117 H Total Protein 7.8 Albumin 3.5 Triglycerides Cholesterol LDL Cholesterol, Calc HDL Cholesterol Cholesterol/HDL Ratio 07/28/18 07/29/18 07/29/18 20:13 02:47 02:47 WBC 13.0 H RBC 4.82 Hgb 13.5 Hct 40.7 MCV 84.4 MCH 28.1 MCHC 33.3 RDW 14.7 Plt Count 351 MPV 9.0 Neut % (Auto) 81.2 H Lymph % (Auto) 12.6 [place] % (Auto) 4.4 Eos % (Auto) 0.9 Baso % (Auto) 0.9 Neut # (Auto) 10.6 H Lymph # (Auto) 1.6 [place] # (Auto) 0.6 Eos # (Auto) 0.1 Baso # (Auto) 0.1 WBC Differential . Differential Comment Auto diff final PT 9.8 INR 1.0 APTT 131.2 H* 25.4 D Sodium Potassium Chloride Carbon Dioxide Anion Gap BUN Creatinine Estimated GFR POC Glucose Random Glucose Calcium Total Bilirubin AST ALT Alkaline Phosphatase Total Creatine Kinase CK-MB (CK-2) CK-MB (CK-2) % Troponin I B-Natriuretic Peptide Total Protein Albumin Triglycerides Cholesterol LDL Cholesterol, Calc HDL Cholesterol Cholesterol/HDL Ratio 07/29/18 07/29/18 02:47 07:38 WBC RBC Hgb Hct MCV MCH MCHC RDW Plt Count MPV Neut % (Auto) Lymph % (Auto) [place] % (Auto) Eos % (Auto) Baso % (Auto) Neut # (Auto) Lymph # (Auto) [place] # (Auto) Eos # (Auto) Baso # (Auto) WBC Differential Differential Comment PT INR APTT Sodium 139 Potassium 3.3 L Chloride 106 Carbon Dioxide 26.0 Anion Gap 7 BUN 16 Creatinine 0.78 Estimated GFR 77 L POC Glucose 124 H Random Glucose 159 H Calcium 8.2 L Total Bilirubin AST ALT Alkaline Phosphatase Total Creatine Kinase 451 H CK-MB (CK-2) 46.6 H CK-MB (CK-2) % 10.3 H* Troponin I B-Natriuretic Peptide Total Protein Albumin Triglycerides 187 H Cholesterol 212 H LDL Cholesterol, Calc 130 H HDL Cholesterol 44.2 Cholesterol/HDL Ratio 4.79 - Imaging Impressions Chest X-Ray 07/28/18 17:55 CONCLUSION: The lungs are clear. Head CT 07/28/18 17:56 CONCLUSION: 1. No acute intracranial abnormalities. . Assessment and Plan - Plan Mrs. Greene is a 53 y/o female with a history of diabetes mellitus, hypertension, hypothyroidism, congestive heart failure, and migraine headaches with episodes of hemiparesis who presented to the emergency room on 07/28/2018 complaining of chest pain after she had signed out AMA from [facility] four days prior with similar complaints and elevated troponin. The patient was found to have elevated troponin of 0.95 and was taken emergently to the cardiac catheterization lab by Dr. Grant. She is being admitted under the hospitalist service for medical management. NSTEMI -consult to cardiology - assistance appreciated -s/p cardiac catheterization with PCI with bare-metal stent in the proximal circumflex to treat 95% blockage. -patient loaded with Plavix 600 mg p.o., followed by 75 mg a day for 12-15 months, aspirin 162 mg daily, and Aggrastat drip per protocol, lipid treatment: Atorvastatin 10 qhs, beta-norma: carvedilol 3.125 mg BID, and ACEI: altace 2.5 daily. -follow up with cardiology on 08/01. Cleared for discharge. Type 2 Diabetes Mellitus -Hold home Lantus as dose is unknown and continue Jardiance for now -Accu-Cheks before meals and at bedtime with low-dose NovoLog sliding scale coverage -PRN Hypoglycemia protocol -Monitor trends and blood glucose readings and adjust treatments as indicated -Will need to f/u with Dr. Abdul, PCP as an outpatient Hypertension -Continue Maxide 37.5/20 5 mg and amlodipine -Carvedilol and Altace started as per above -Follow trends in blood blood pressure and adjust treatments as indicated Hypokalemia S/t Jardiance and diuretics. -PO KCl. On 10 meq daily at home. -follow with PCP. Yeast infection Chronic. -resume home regimen of nystatin. DVT prophylaxis: Ambulation Discharge Planning: D/c home
[2018-07-29] MEDS: Nystatin 100,000 UNITS/GM Powder 15 GM Bottle TOPICAL SCH ×2 (14:37→15:29)
--- NOTE | 2018-07-29 14:39 | ECG ---
Date Performed: 07/28/2018 Time Performed: 18:26:30 PTAGE: 53 years EKG: Sinus rhythm NONSPECIFIC ST & T-WAVE ABNORMALITY BORDERLINE ECG Since the PREVIOUS TRACING , no significant change noted PREVIOUS TRACING DOCTOR: Kathy Martinez Interpretating Date/Time 07/29/2018 14:30:22
--- NOTE | 2018-07-29 14:39 | ECG ---
Date Performed: 07/28/2018 Time Performed: 19:13:12 PTAGE: 53 years EKG: Sinus rhythm NONSPECIFIC ST & T-WAVE ABNORMALITY BORDERLINE ECG Since the PREVIOUS TRACING , no significant change noted PREVIOUS TRACIN10/10/2012 20.57 DOCTOR: Kathy Martinez Interpretating Date/Time 07/29/2018 14:30:31
[2018-07-29 15:24] VITALS: BP 132/74; TEMP 98.3; O2SAT 97
[2018-07-29 17:02] VITALS: PULSE 72
--- NOTE | 2018-07-30 15:16 | ECG ---
Date Performed: 07/29/2018 Time Performed: 08:50:46 PTAGE: 53 years EKG: Sinus rhythm . Inferior ST-T changes are nonspecific Borderline ECG PREVIOUS TRACING : 07/28/2018 19.13 Compared to previous tracing, the minor Nonspecific ST-T ch anges are unchanged. DOCTOR: Ramos Vital Interpretating Date/Time 07/30/2018 15:14:31
== END 2018-07-29 17:42 | disposition home or self-care (01) | DRG 249 ==
LOC: NEDA 17:15 → NEPE 17:15 → NEDA 20:13 → HCIS 21:35
PROVIDERS: ADMIT Hospitalist; ATTEND Hospitalist
CPT/HCPCS: 70450; 71010; 71045; 80048; 80053; 80061; 82550; 82552; 82948; 82962; 83520; 83880; 84484; 85002; 85025; 85347; 85610; 85730; 90774; 90775; 90784; 92928; 93005; 93458; 96374; 96375; 99152; 99153; 99285; C1769; C1876; C1887; C1893; C8952; J1644; J1815; J2250; J2270; J2405; J3010; J3246; Q9967